=== PATIENT | female | born 1995 | race Caucasian/White ===

== ENCOUNTER 2020-08-18 16:38 | Outpatient (CLI) | payer SELFPAY ==
[~2020-08-18] VITALS: Ht 147.3 cm; Wt 61.8 kg
--- NOTE | 2020-08-18 16:46 | NUR ---
Presents to L&D, ambulatory to unit, accompanied by spouse. C/O "I'm in labor." Reports zara every 2-3 minutes over last hour, and the hour before that every 5-6 minutes. Denies any vaginal bleeding or leaking of fluid.
[2020-08-18 17:00] VITALS: BP 123/76; PULSE 110; TEMP 98.7
[2020-08-18] MEDS ORDERED: PRENATAL TABLET PO (17:04)
[2020-08-18] MEDS ORDERED: FERROUS SU325 MG/TAB PO (17:05)
--- NOTE | 2020-08-18 17:21 | NUR ---
Allowed off of EFM per Dr.Weber zamudio to discharge to home. Early labor precautions, discomforts of discussed with patient as well as at home remedies to aide in getting through early labor contractions. Discussed need to call or return if she experiences any leaking of fluid, vaginal bleeding, or worsening of intensity, frequency of contractions. Discussed that she may spot a little, since SVE was performed. Verbalizes understanding. Denies any questions or concerns.
== END 2020-08-18 17:30 | disposition home or self-care (01) ==
LOC: LDRO 16:38
DX: Z34.00 Encounter for supervision of normal first pregnancy, unspecified trimester (principal); Z3A.00 Weeks of gestation of pregnancy not specified

== ENCOUNTER 2020-08-20 21:30 | Inpatient (IN) | payer SELFPAY ==
[~2020-08-20] VITALS: Ht 147.3 cm; Wt 61.4 kg
[2020-08-20] VITALS: BP 124/72; PULSE 93; TEMP 98.6
[~2020-08-20 21:30] MED LIST: FERROUS SU325 MG/TAB PO; PRENATAL TABLET PO
[2020-08-20 22:00] VITALS: BP 124/72; PULSE 93
[2020-08-21] VITALS (12 sets, daily range): BP systolic 101–137; BP diastolic 53–78; PULSE 73–142; TEMP 98–98.9
[2020-08-21 03:16] LABS: BASO % 0.2 % (0.0-2.0); EOS % 0.1 % (0-4.0); GRAN # 17.8 (1.4-6.5); HEMATOCRIT 39.3 % (37.0-47.0); HEMOGLOBIN 13.2 g/dl (12.5-16.0); LYMPH # 1.1 (1.2-3.4); LYMPH % 5.7 % (20.0-51.0); MEAN CELL VOLUME 81 fl (80.0-100.0); MEAN CORPUSCULAR HEMOGLOBIN 27 pg (27.0-31.0); MEAN CORPUSCULAR HGB CONC 34 g/dl (33.0-37.0); MEAN PLATELET VOLUME 10.9 fl (7.4-10.4); MONO # 0.8 (0.1-0.6); MONO % 4.2 % (1.7-9.3); PLATELET COUNT 220 K/mm3 (130-400); RED BLOOD COUNT 4.87 M/mm3 (4.10-5.30); REDCELL DISTRIBUTION WIDTH-CV 15.9 % (11.5-14.5)
--- NOTE | 2020-08-21 07:50 | NUR ---
FARHAN GALEAS AT BEDSIDE FOR EPIDURAL. TEST DOSE AT 2023
--- NOTE | 2020-08-21 07:58 | NUR ---
OF VIABLE MALE AT 0524. DR. TALBERT AT BEDSIDE. SPONTANEOUS DELVERY OF PLACENTA AT 0530.
[2020-08-22 02:45] VITALS: BP 106/63; PULSE 96; TEMP 98.5
[2020-08-22] MEDS ORDERED: MOTRIN 600600 MG/TAB PO (08:25)
[2020-08-22 08:50] VITALS: BP 100/60; PULSE 88; TEMP 97.6
[2020-08-22 16:05] VITALS: BP 110/70; PULSE 105; TEMP 98
[2020-08-22 18:45] VITALS: BP 100/59; PULSE 116; TEMP 98.5
[2020-08-23 08:00] VITALS: BP 103/56; PULSE 80; TEMP 98
--- NOTE | 2020-08-23 10:00 | NUR ---
PATIENT TEARY. PATIENT TALKED WITH THIS NURSE ABOUT PLAN OF CARE AND FAMILY ABLE TO HELP. ASSISTED WITH CHANGING BABY. PROVIDED PATIENT WITH BINDER
[2020-08-23 14:00] VITALS: BP 118/66; PULSE 88
== END 2020-08-23 14:30 | disposition home or self-care (01) | DRG 807 ==
LOC: LDRO 21:30 → LDR 21:54 → LDRO 08-21 02:59 → LDR 08-21 03:00 → OB 08-21 05:48
PROVIDERS: Obstetrics & Gynecology; ADMIT Obstetrics & Gynecology
PROC: 10E0XZZ Delivery of Products of Conception, External Approach (ICD-10-PCS; principal; 2020-08-21)
PROC: 0KQM0ZZ Repair Perineum Muscle, Open Approach (ICD-10-PCS; 2020-08-21)
DX: O34.03 Maternal care for unspecified congenital malformation of uterus, third trimester (principal); Z37.0 Single live birth; Q51.3 Bicornate uterus; Z3A.39 39 weeks gestation of pregnancy; O77.0 Labor and delivery complicated by meconium in amniotic fluid; O70.1 Second degree perineal laceration during delivery; F41.9 Anxiety disorder, unspecified; O99.344 Other mental disorders complicating childbirth; O26.893 Other specified pregnancy related conditions, third trimester; Z67.11 Type A blood, Rh negative
CPT/HCPCS: OP; J2590; J7120

== ENCOUNTER → 2020-08-27 | Outpatient (CLI) | payer SELFPAY ==
[~2020-08-27] MED LIST changes: +MOTRIN 600600 MG/TAB PO
--- NOTE | 2020-08-27 15:22 | NUR ---
Pt, Leann Cuellar, presents for outpatient consult with 6 day old baby boy, Vincent Cuellar. She is accompanied by her spouse, Jesu Cuellar. Pt states she is not sure Vincent is getting enough to eat from the breast and his effort/time at the breast is declining. They have also contacted this by telephone with concerns about fussiness and spitting. Vincent was born on [birth year] and weighed 6#9.1oz (2980 gms). He had weight loss of 11.5% (5#12.8oz) (2630 gms) at day two of life. Vincent was supplemented formula and Leann began pumping to establish milk supply. Discharge weight was 5#15oz (2700 gms). He was bottle feeding EBM and drinking ~30ml per feeding. Today Vincent weighs 6#0.2oz (2728 gms) and is at 8% loss from , and a gain of 28 gms since discharge 3 days ago. Pt states she feeds Vincent on demand or q 3 hours, which ever comes first. He nurses for ~ 5 minutes before getting too tired to nurse. He is then fed ~50ml EBM by bottle. Pt continues to pump with feedings, collecting 60-120ml. Vincent is placed to the breast with assist. Pt is fairly passive with putting the breast into Vincent's mouth. With assist, Vincent gets more areola into his mouth and nurses pretty well for the first 5 minutes, and continues with stimulation for another 5 minutes. Gain from the first breast is 20gms. He has a spit up that brings his weight down by 2 gms. Pt is assisted with getting him latched well on the second breast. Total gain after is 36 gms (1.3 oz). Recommedation: Continue breast, supplementing ~50ml and pumping until Vincent is more effective at , weight gain is in the range of 0.5-1oz per day, and infant is above weight. F/U: Spouse states that they can have Vincent weighed at anytime with Dr. [facility]. Advised to weigh him Monday, and expect to see a gain of 2-4oz to be in the desired rate of gain for a . Family to report his weight to this for advice on changing feeding plan. Questions invited and answered.
== END ==
LOC: LAC 12:57
DX: Z39.1 Encounter for care and examination of lactating mother (principal); Z71.89 Other specified counseling